=== PATIENT | female | born 1945 | race Caucasian/White ===

== ENCOUNTER 2016-09-16 14:10 | Inpatient (IN) | payer OTHER ==
[2016-09-16] VITALS (8 sets, daily range): BP systolic 104–142; BP diastolic 65–78
[~2016-09-16] VITALS: Ht 154.9 cm; Wt 49.0 kg
[~2016-09-16 14:10] MED LIST: ADVAIR HFA120 INHAL1; ADVAIR HFA120 INHAL1 IH; ALBUTEROL0.63 MG/3 IH; ALBUTEROL17 GM IH; ALBUTEROL2.5 MG/3 M IH; AMLODIPINE BESY10 MG PO; AMLODIPINE BESYL5 MG PO; ASPIR-LOW81 MG PO; AZITHROMYCIN250 MG1 PO; BENZONATATE100 MG PO; CADUET 10/201 TABLET PO; CARISOPRODOL350 MG PO; CEFDINIR300 MG PO; CEFTIN500 MG PO; CEPHALEXIN500 MG PO; CHERATUSSIN AC473 ML PO; COLACE100 MG PO; COMBIVENT RESPIM4 GM IH; COMBIVENT200 INHALA IH; CREON DR 36,001 EACH PO; CYCLOBENZAPRINE5 MG PO; DILAUDID2 MG PO; DOXYCYCLINE HY100 M3 PO; DUONEB 2.5-0.5 M3 ML IH; FLEXERIL5 MG PO; FLONASE16 G1 BOTH NARES; FLORA-Q CAPSUL1 EACH PO; FLUTICASONE PRO16 GM BOTH NARES; GLUCOPHAGE500 MG PO; GUAIFENESI100 MG/5 M PO; HYDROCODON-ACE1 EAC7 PO; LEVAQUIN500 MG PO; LEVAQUIN750 MG PO; LEVEMIR FL100 UNIT/1 SC; LEVEMIR100 UNIT/2 SC; LEVOFLOXACIN750 MG PO; LIDODERM 5% P1 PATCH TD; LO-DOSE ASPIRIN81 M1 PO; LYRICA50 MG PO; LYRICA75 MG PO; METFORMIN HCL500 MG PO; MONTELUKAST SOD10 MG PO; MORPHINE SULFAT15 M1 PO; MS CONTIN,ORAMO15 M1 PO; MUCINEX600 MG PO; MYCOSTATIN 100,60 ML PO; NORVASC5 MG PO; OXYCODONE HCL10 MG PO; OXYCODONE-APAP1 EAC6 PO; OXYCODONE15 MG PO; PERCOCET 10/1 TABLET PO; PERCOCET 7.51 TABLET PO; PRAVACHOL20 MG PO; PRAVASTATIN SOD20 MG PO; PREDNISONE10 M1 PO; PREDNISONE10 MG PO; PREDNISONE20 MG PO; PREDNISONE5 MG PO; PREDNISONE50 MG PO; PROBIOTIC1 EAC1 PO; PROMETHAZINE HC25 M1 PO; PROVENTIL,2.5 MG/3 M IH; SINGULAIR10 MG PO; SPIRIVA1 INHALATI IH; THEO-24300 MG PO; THEO-DUR,THEOC200 MG PO; THEO-DUR,THEOC300 MG PO; THEOPHYLLINE400 MG PO; TIZANIDINE HCL2 MG PO; WELLBUTRIN SR150 MG PO
[2016-09-16 15:00] LABS: HEMATOCRIT 37.9 % (36.0-46.0); MCH 30.5 PG (29.0-34.0); MCHC 33.8 G/DL (30.0-36.0); MCV 90.2 FL (83-99); MEAN PLAT.VOLUME 12.1 uM^3 (9.5-12.4); PLATELET COUNT 133 K/uL (156-360); RBC DIS.WIDTH-CV 13.1 % (11.8-14.6); RBC DIS.WIDTH-SD 42.4 % (39-53); WHITE BLOOD COUNT 7.6 K/uL (4.1-10.2)
[2016-09-16 15:03] LABS: CARBON DIOXIDE (BICARBONATE) 36.3 MEQ/L (20-31)
[2016-09-16 15:09] LABS: CHLORIDE 102 mEq/L (99-109); SODIUM 143 mEq/L (136-147)
[2016-09-16 15:11] LABS: GLUCOSE 137 mg/dL (70-99)
[2016-09-16 15:13] LABS: ANION GAP 9 MEQ/L (2-14)
[2016-09-16 15:15] LABS: GFR ESTIMATE (CALCULATED) > 59 mL/min/
[2016-09-16 15:16] LABS: UREA NITROGEN (BUN) 9 mg/dL (9-23)
[2016-09-16 15:21] LABS: TROP-I INTERPRETATION NEGATIVE; TROPONIN-I 0.01 ng/mL (0.0-0.30)
[2016-09-16] MEDS ORDERED: XYZAL5 MG PO (17:26)
[2016-09-16] MEDS ORDERED: ZANAFLEX4 M1 PO (17:26)
[2016-09-16 22:02] LABS: POINT-OF-CARE METER ID UU13113831
[2016-09-17 00:09] VITALS: BP 112/59
[2016-09-17 04:43] VITALS: BP 149/71
[2016-09-17 09:26] LABS: ANION GAP 6 MEQ/L (2-14); CHLORIDE 100 MEQ/L (99-109); GFR ESTIMATE (CALCULATED) > 59 mL/min/; SAMPLE HEMOLYSIS CHECK 0; SAMPLE ICTERIC CHECK 0; SAMPLE LIPEMIA CHECK 0; SODIUM 139 MEQ/L (136-147); UREA NITROGEN (BUN) 17 mg/dL (9-23)
[2016-09-17 09:32] LABS: GLUCOSE 272 mg/dL (70-99); POTASSIUM 5.2 MEQ/L (3.7-5.4)
[2016-09-17 09:33] LABS: HEMATOCRIT 32.4 % (36.0-46.0); MCH 30.4 PG (29.0-34.0); MCHC 33.6 G/DL (30.0-36.0); MCV 90.5 FL (83-99); MEAN PLAT.VOLUME 12.4 uM^3 (9.5-12.4); PLATELET COUNT 123 K/uL (156-360); RBC DIS.WIDTH-CV 13.4 % (11.8-14.6); RBC DIS.WIDTH-SD 44.3 % (39-53); RED BLOOD COUNT 3.58 M/uL (3.80-5.20)
[2016-09-17 09:56] LABS: WHITE BLOOD COUNT 3.6 K/uL (4.1-10.2)
[2016-09-17 11:17] VITALS: BP 124/57
[2016-09-17 12:51] LABS: POINT-OF-CARE METER ID UU14162513
[2016-09-17 16:35] VITALS: BP 116/58
[2016-09-17 19:42] VITALS: BP 142/69
[2016-09-17 21:39] LABS: POINT-OF-CARE METER ID UU13113700
[2016-09-17 23:30] VITALS: BP 132/62
[2016-09-18] VITALS (7 sets, daily range): BP systolic 116–149; BP diastolic 56–89
[2016-09-18 12:11] LABS: POINT-OF-CARE METER ID UU13113831
[2016-09-18 15:41] LABS: INFLUENZA A VIRAL ANTIGEN NEGATIVE; INFLUENZA B VIRAL ANTIGEN NEGATIVE
[2016-09-19 03:03] VITALS: BP 145/66
[2016-09-19 06:54] VITALS: BP 164/85
[2016-09-19 07:44] LABS: INTERNAL CONTROL VALID? YES
[2016-09-19 08:41] LABS: ANION GAP 8 MEQ/L (2-14); CHLORIDE 99 MEQ/L (99-109); GFR ESTIMATE (CALCULATED) > 59 mL/min/; GLUCOSE 156 mg/dL (70-99); SAMPLE HEMOLYSIS CHECK 0; SAMPLE ICTERIC CHECK 0; SAMPLE LIPEMIA CHECK 0; SODIUM 142 MEQ/L (136-147); UREA NITROGEN (BUN) 19 mg/dL (9-23)
[2016-09-19 08:42] LABS: POTASSIUM 4.1 MEQ/L (3.7-5.4)
[2016-09-19 08:50] LABS: HEMATOCRIT 35.8 % (36.0-46.0); MCHC 32.7 G/DL (30.0-36.0); MCV 91.8 FL (83-99); MEAN PLAT.VOLUME 12.9 uM^3 (9.5-12.4); PLATELET COUNT 132 K/uL (156-360); RBC DIS.WIDTH-CV 13.4 % (11.8-14.6); RBC DIS.WIDTH-SD 43.6 % (39-53)
[2016-09-19 08:52] LABS: WHITE BLOOD COUNT 13.5 K/uL (4.1-10.2)
[2016-09-19 11:05] VITALS: BP 115/56
[2016-09-19 11:26] LABS: METH RESISTANT S AUREUS PCR NEGATIVE (NEGATIVE)
[2016-09-19 11:27] LABS: PROBE CHECK PASS; SPECIMEN PROCESSING CONTROL PASS
[2016-09-19 16:25] VITALS: BP 140/66
[2016-09-19 21:31] LABS: POINT-OF-CARE METER ID UU14162508
[2016-09-19 23:05] VITALS: BP 96/59
[2016-09-20 07:33] LABS: ANION GAP 4 MEQ/L (2-14); CHLORIDE 98 MEQ/L (99-109); GFR ESTIMATE (CALCULATED) > 59 mL/min/; GLUCOSE 172 mg/dL (70-99); MAGNESIUM 1.9 mg/dl (1.3-2.7); POTASSIUM 4.5 MEQ/L (3.7-5.4); SAMPLE HEMOLYSIS CHECK 0; SAMPLE ICTERIC CHECK 0; SAMPLE LIPEMIA CHECK 0; SODIUM 141 MEQ/L (136-147); UREA NITROGEN (BUN) 22 mg/dL (9-23)
[2016-09-20 07:36] LABS: EOSINOPHIL (%) 0 % (0-5); HEMATOCRIT 34.2 % (36.0-46.0); IMMATURE GRANULOCYTE (%) 0.3 % (0.0-0.7); LYMPHOCYTE COUNT 1.9 K/uL (1.0-2.8); MCH 28.7 PG (29.0-34.0); MCHC 31.6 G/DL (30.0-36.0); MEAN PLAT.VOLUME 12.8 uM^3 (9.5-12.4); MONOCYTE COUNT 0.2 K/uL (0-0.8); NEUTROPHIL (%) 73.2 % (45-76); NEUTROPHIL COUNT 5.8 K/uL (1.8-6.4); PLATELET COUNT 132 K/uL (156-360); RBC DIS.WIDTH-CV 13.4 % (11.8-14.6); RBC DIS.WIDTH-SD 44.3 % (39-53); RED BLOOD COUNT 3.76 M/uL (3.80-5.20)
[2016-09-20 08:06] VITALS: BP 138/76
[2016-09-20 12:03] LABS: POINT-OF-CARE METER ID UU14162508
[2016-09-20 16:48] LABS: POINT-OF-CARE METER ID UU14162508
[2016-09-20 21:57] LABS: POINT-OF-CARE METER ID UU14162508
[2016-09-20 23:33] VITALS: BP 112/67
[2016-09-21 06:28] LABS: POINT-OF-CARE METER ID UU14162508
[2016-09-21 07:44] VITALS: BP 151/94
[2016-09-21] MEDS ORDERED: PREDNISONE10 MG PO (08:50)
[2016-09-21] MEDS ORDERED: AUGMENTIN500 MG PO (08:50)
== END 2016-09-21 10:40 | disposition home or self-care (01) | DRG 190 ==
LOC: EME 14:10 → EDOF 18:40 → 5WEST 18:40 → EDOF 18:40 → 5WEST 20:11 → 2EAST 09-17 10:26 → 5WEST 09-17 10:26 → 2EAST 09-18 18:34
PROVIDERS: Emergency Medicine; Hospitalist; Internal Medicine; Nurse Practitioner Adult Health; Physician Assistant
DX: J44.1 Chronic obstructive pulmonary disease with (acute) exacerbation (principal); J44.0 Chronic obstructive pulmonary disease with (acute) lower respiratory infection; J20.9 Acute bronchitis, unspecified; J96.21 Acute and chronic respiratory failure with hypoxia; I10 Essential (primary) hypertension; E11.9 Type 2 diabetes mellitus without complications; D69.6 Thrombocytopenia, unspecified; G89.29 Other chronic pain; M54.9 Dorsalgia, unspecified; K59.00 Constipation, unspecified; F41.9 Anxiety disorder, unspecified; E78.5 Hyperlipidemia, unspecified; K21.9 Gastro-esophageal reflux disease without esophagitis; Z99.81 Dependence on supplemental oxygen; Z87.891 Personal history of nicotine dependence; Z79.82 Long term (current) use of aspirin
CPT/HCPCS: 71010; 71020; 80048; 80198; 82803; 82948; 83605; 83735; 83880; 84484; 85025; 85027; 87040; 87070; 87205; 87449; 87502; 87641; 93005; 94010; 94640; 94640 76; 94760; 94799; 99202; 99281; 99285; G0378; J0692; J0696; J1100; J1644; J1815; J1956; J2920; J2930; J7050; J7512; J7644

== ENCOUNTER 2016-12-27 11:37 | Inpatient (IN) | payer OTHER ==
[~2016-12-27] VITALS: Ht 154.9 cm; Wt 42.3 kg
[~2016-12-27 11:37] MED LIST changes: +AUGMENTIN500 MG PO; +XYZAL5 MG PO; +ZANAFLEX4 M1 PO
[2016-12-27 13:12] LABS: HEMATOCRIT 35.6 % (36.0-46.0); MCH 29.1 PG (29.0-34.0); MCHC 32.3 G/DL (30.0-36.0); MCV 90.1 FL (83-99); MEAN PLAT.VOLUME 12.6 uM^3 (9.5-12.4); PLATELET COUNT 135 K/uL (156-360); RBC DIS.WIDTH-CV 13.4 % (11.8-14.6); RBC DIS.WIDTH-SD 44.2 % (39-53); RED BLOOD COUNT 3.95 M/uL (3.80-5.20); WHITE BLOOD COUNT 17.4 K/uL (4.1-10.2)
[2016-12-27 13:23] LABS: CHLORIDE 101 mEq/L (99-109); POTASSIUM 3.6 mEq/L (3.7-5.4); SODIUM 143 mEq/L (136-147)
[2016-12-27 13:24] LABS: GLUCOSE 250 mg/dL (70-99)
[2016-12-27 13:26] LABS: ANION GAP 11 MEQ/L (2-14)
[2016-12-27 13:28] LABS: GFR ESTIMATE (CALCULATED) > 59 mL/min/
[2016-12-27 13:29] LABS: UREA NITROGEN (BUN) 20 mg/dL (9-23)
[2016-12-27] MEDS ORDERED: SPIRIVA RESPIMAT4 G1 IH (13:46)
[2016-12-27] MEDS ORDERED: DESYREL100 MG PO (13:47)
[2016-12-27] MEDS ORDERED: MECLIZINE HCL25 MG PO (13:47)
[2016-12-27 16:48] LABS: TROP-I INTERPRETATION NEGATIVE; TROPONIN-I < 0.01 ng/mL (0.0-0.30)
[2016-12-27 21:26] VITALS: BP 142/70
[2016-12-27 22:55] LABS: TROP-I INTERPRETATION NEGATIVE; TROPONIN-I < 0.01 ng/mL (0.0-0.30)
[2016-12-28] VITALS (7 sets, daily range): BP systolic 129–179; BP diastolic 60–79
[2016-12-28 06:41] LABS: POINT-OF-CARE METER ID UU14162508
[2016-12-28 07:42] LABS: TROP-I INTERPRETATION NEGATIVE; TROPONIN-I < 0.01 ng/mL (0.0-0.30)
[2016-12-28 12:15] LABS: POINT-OF-CARE USER ID STWLMB34
[2016-12-28 17:01] LABS: POINT-OF-CARE METER ID UU14162508
[2016-12-28 22:27] LABS: POINT-OF-CARE METER ID UU14162508
[2016-12-29 03:05] VITALS: BP 159/68
[2016-12-29 06:26] LABS: POINT-OF-CARE METER ID UU14162508
[2016-12-29 07:00] VITALS: BP 184/85
[2016-12-29 11:15] LABS: POINT-OF-CARE METER ID UU14162508
[2016-12-29 11:21] VITALS: BP 136/68
[2016-12-29 15:58] LABS: POINT-OF-CARE METER ID UU14162508
[2016-12-29 16:11] VITALS: BP 134/72
[2016-12-29 19:16] VITALS: BP 113/57
[2016-12-29 21:44] LABS: POINT-OF-CARE METER ID UU14162508
[2016-12-29 23:21] VITALS: BP 177/87
[2016-12-30 00:06] VITALS: BP 142/75
[2016-12-30 03:16] VITALS: BP 143/72
[2016-12-30 06:27] LABS: POINT-OF-CARE METER ID UU14162508
[2016-12-30 06:55] LABS: HEMATOCRIT 34.4 % (36.0-46.0); MCH 28.7 PG (29.0-34.0); MCHC 31.7 G/DL (30.0-36.0); MCV 90.5 FL (83-99); MEAN PLAT.VOLUME 11.6 uM^3 (9.5-12.4); RBC DIS.WIDTH-CV 13.4 % (11.8-14.6); RBC DIS.WIDTH-SD 44.7 % (39-53)
[2016-12-30 06:58] LABS: PLATELET COUNT 179 K/uL (156-360); WHITE BLOOD COUNT 10.5 K/uL (4.1-10.2)
[2016-12-30 07:13] LABS: ANION GAP 8 MEQ/L (2-14); CHLORIDE 95 MEQ/L (99-109); GFR ESTIMATE (CALCULATED) > 59 mL/min/; GLUCOSE 313 mg/dL (70-99); POTASSIUM 4.1 MEQ/L (3.7-5.4); SAMPLE HEMOLYSIS CHECK 0; SAMPLE ICTERIC CHECK 0; SAMPLE LIPEMIA CHECK 0; SODIUM 141 MEQ/L (136-147); UREA NITROGEN (BUN) 15 mg/dL (9-23)
[2016-12-30 07:23] VITALS: BP 161/74
[2016-12-30] MEDS ORDERED: METFORMIN HCL500 MG PO (08:54)
[2016-12-30] MEDS ORDERED: PREDNISONE10 MG PO (11:38)
[2016-12-30 11:47] LABS: POINT-OF-CARE METER ID UU14162508
[2017-01-01 11:09] LABS: POINT-OF-CARE METER ID UU13113702
== END 2016-12-30 15:47 | disposition home health service (06) | DRG 190 ==
LOC: EME 11:37 → EDOF 13:45 → 2EAST 15:16 → EDOF 15:17 → 2EAST 21:23
PROVIDERS: Emergency Medicine; Internal Medicine; Nurse Practitioner Adult Health
DX: J44.1 Chronic obstructive pulmonary disease with (acute) exacerbation (principal); J96.21 Acute and chronic respiratory failure with hypoxia; F17.210 Nicotine dependence, cigarettes, uncomplicated; D69.6 Thrombocytopenia, unspecified; D64.9 Anemia, unspecified; E11.9 Type 2 diabetes mellitus without complications; I10 Essential (primary) hypertension; K86.9 Disease of pancreas, unspecified; E78.00 Pure hypercholesterolemia, unspecified; G89.4 Chronic pain syndrome; F41.9 Anxiety disorder, unspecified; Z99.81 Dependence on supplemental oxygen; Z79.84 Long term (current) use of oral hypoglycemic drugs
CPT/HCPCS: 71020; 71250; 80048; 82948; 83605; 84484; 85027; 87070; 87205; 93005; 94640; 94640 76; 94760; 94799; 99202; 99281; 99284; J0696; J1100; J1650; J1815; J2920; J2930; J7030; J7050; J7512; J7644

== ENCOUNTER 2017-01-13 14:05 | Emergency (ER) | payer OTHER ==
[~2017-01-13] VITALS: Ht 152.4 cm; Wt 39.6 kg
[~2017-01-13 14:05] MED LIST changes: +DESYREL100 MG PO; +MECLIZINE HCL25 MG PO; +SPIRIVA RESPIMAT4 G1 IH
[2017-01-13 16:18] LABS: HEMATOCRIT 38.5 % (36.0-46.0); MCH 28.6 PG (29.0-34.0); MCHC 31.7 G/DL (30.0-36.0); MCV 90.2 FL (83-99); MEAN PLAT.VOLUME 11.4 uM^3 (9.5-12.4); PLATELET COUNT 186 K/uL (156-360); RBC DIS.WIDTH-CV 14.6 % (11.8-14.6); RBC DIS.WIDTH-SD 47.5 % (39-53); RED BLOOD COUNT 4.27 M/uL (3.80-5.20); WHITE BLOOD COUNT 11.1 K/uL (4.1-10.2)
[2017-01-13 16:28] LABS: CHLORIDE 97 mEq/L (99-109); POTASSIUM 4.3 mEq/L (3.7-5.4); SODIUM 137 mEq/L (136-147)
[2017-01-13 16:30] LABS: GLUCOSE 265 mg/dL (70-99)
[2017-01-13 16:31] LABS: ANION GAP 11 MEQ/L (2-14)
[2017-01-13 16:33] LABS: GFR ESTIMATE (CALCULATED) > 59 mL/min/
[2017-01-13 16:34] LABS: UREA NITROGEN (BUN) 14 mg/dL (9-23)
[2017-01-13 16:40] LABS: TROP-I INTERPRETATION NEGATIVE; TROPONIN-I < 0.01 ng/mL (0.0-0.30)
[2017-01-13 18:47] VITALS: BP 125/67
== END 2017-01-13 19:14 | disposition home or self-care (01) ==
LOC: EME 14:05
PROVIDERS: Emergency Medicine
DX: R42 Dizziness and giddiness (principal); R06.02 Shortness of breath; R07.89 Other chest pain; E11.9 Type 2 diabetes mellitus without complications; E78.5 Hyperlipidemia, unspecified; I10 Essential (primary) hypertension; K21.9 Gastro-esophageal reflux disease without esophagitis; Z87.891 Personal history of nicotine dependence; Z79.82 Long term (current) use of aspirin
CPT/HCPCS: 71275; 80048; 84484; 85027; 93005; 94640; 99281; 99285

== ENCOUNTER 2017-04-22 21:16 | Inpatient (IN) | payer OTHER ==
[~2017-04-22] VITALS: Ht 154.9 cm; Wt 41.7 kg
[2017-04-22 22:07] LABS: EOSINOPHIL (%) 2.7 % (0-5); EOSINOPHIL COUNT 0.4 K/uL (0-0.3); HEMATOCRIT 36.6 % (36.0-46.0); IMMATURE GRANULOCYTE (%) 0.4 % (0.0-0.7); IMMATURE GRANULOCYTE COUNT 0.1 K/uL; INSTRUMENT ABS NEUTROPHIL CT 9.9 K/uL; LYMPHOCYTE COUNT 2.2 K/uL (1.0-2.8); MCH 29.4 PG (29.0-34.0); MCHC 32.5 G/DL (30.0-36.0); MCV 90.4 FL (83-99); MEAN PLAT.VOLUME 12.5 uM^3 (9.5-12.4); MONOCYTE (%) 5.4 % (3-12); MONOCYTE COUNT 0.7 K/uL (0-0.8); NEUTROPHIL (%) 74.6 % (45-76); NEUTROPHIL COUNT 9.9 K/uL (1.8-6.4); PLATELET COUNT 121 K/uL (156-360); RBC DIS.WIDTH-CV 13.4 % (11.8-14.6); RBC DIS.WIDTH-SD 44.1 % (39-53); RED BLOOD COUNT 4.05 M/uL (3.80-5.20); WHITE BLOOD COUNT 13.3 K/uL (4.1-10.2)
[2017-04-22 22:17] LABS: CHLORIDE 101 mEq/L (99-109); POTASSIUM 3.3 mEq/L (3.7-5.4); SODIUM 143 mEq/L (136-147)
[2017-04-22 22:19] LABS: GLUCOSE 185 mg/dL (70-99)
[2017-04-22 22:20] LABS: ANION GAP 12 MEQ/L (2-14)
[2017-04-22 22:21] LABS: TOTAL BILIRUBIN 0.2 mg/dL (0.0-1.0)
[2017-04-22 22:22] LABS: ALKALINE PHOSPHATASE 72 IU/L (3-129)
[2017-04-22 22:23] LABS: GFR ESTIMATE (CALCULATED) > 59 mL/min/
[2017-04-22 22:24] LABS: UREA NITROGEN (BUN) 9 mg/dL (9-23)
[2017-04-22 22:28] LABS: TROP-I INTERPRETATION NEGATIVE; TROPONIN-I < 0.01 ng/mL (0.0-0.30)
[2017-04-23 03:16] VITALS: BP 134/66
[2017-04-23 05:28] LABS: BASE EXCESS 6.6 mEq/L (-3 to +3); BICARBONATE 34.3 mEq/L (22-26); CARBOXY HGB 2.4 % (0-5); COMMENTS - BLOOD GASES C+; DEVICE NC; O2 FLOW 4 L/MIN; PCO2 65 mm Hg (35-45); PO2 70 mm Hg (80-100); SITE LR; pH 7.33 (7.35-7.45)
[2017-04-23 06:25] LABS: POINT-OF-CARE METER ID UU14162508
[2017-04-23 07:25] VITALS: BP 134/72
[2017-04-23] MEDS ORDERED: ZANAFLEX4 M1 PO (09:10)
[2017-04-23] MEDS ORDERED: XYZAL5 MG PO (09:11)
[2017-04-23] MEDS ORDERED: JANUMET 50/11 TABLET PO (09:11)
[2017-04-23] MEDS ORDERED: LASIX20 MG PO (09:12)
[2017-04-23] MEDS ORDERED: KLOR-CON 1010 ME1 PO (09:12)
[2017-04-23 10:05] LABS: ANION GAP 8 MEQ/L (2-14); CHLORIDE 99 MEQ/L (99-109); GFR ESTIMATE (CALCULATED) > 59 mL/min/; SAMPLE HEMOLYSIS CHECK 0; SAMPLE ICTERIC CHECK 0; SAMPLE LIPEMIA CHECK 0; SODIUM 141 MEQ/L (136-147); UREA NITROGEN (BUN) 12 mg/dL (9-23)
[2017-04-23 10:06] LABS: GLUCOSE 295 mg/dL (70-99); POTASSIUM 4.5 MEQ/L (3.7-5.4)
[2017-04-23 11:30] VITALS: BP 124/61
[2017-04-23 12:08] LABS: POINT-OF-CARE METER ID UU14208750; POINT-OF-CARE USER ID PUTDRM
[2017-04-23 15:20] VITALS: BP 137/63
[2017-04-23 16:52] LABS: POINT-OF-CARE METER ID UU14208750; POINT-OF-CARE USER ID PUTDRM
[2017-04-23 19:23] VITALS: BP 113/61
[2017-04-23 21:58] LABS: POINT-OF-CARE METER ID UU14162508
[2017-04-23 23:57] VITALS: BP 120/64
[2017-04-24 03:48] VITALS: BP 129/62
[2017-04-24 06:50] VITALS: BP 139/77
[2017-04-24 07:06] LABS: POINT-OF-CARE METER ID UU14162508
[2017-04-24 07:39] LABS: HEMATOCRIT 35.5 % (36.0-46.0); MCH 28.8 PG (29.0-34.0); MCHC 31.3 G/DL (30.0-36.0); RBC DIS.WIDTH-CV 13.8 % (11.8-14.6); RBC DIS.WIDTH-SD 46.4 % (39-53); RED BLOOD COUNT 3.86 M/uL (3.80-5.20)
[2017-04-24 08:05] LABS: MEAN PLAT.VOLUME 12.7 uM^3 (9.5-12.4); PLAT.SUFFICIENCY DECREASED; PLATELET COUNT 120 K/uL (156-360)
[2017-04-24 08:06] LABS: ALKALINE PHOSPHATASE 59 IU/L (3-129); ANION GAP 9 MEQ/L (2-14); CHLORIDE 101 MEQ/L (99-109); GFR ESTIMATE (CALCULATED) > 59 mL/min/; GLUCOSE 202 mg/dL (70-99); POTASSIUM 4.7 MEQ/L (3.7-5.4); SAMPLE HEMOLYSIS CHECK 0; SAMPLE ICTERIC CHECK 0; SAMPLE LIPEMIA CHECK 0; SODIUM 144 MEQ/L (136-147); TOTAL BILIRUBIN 0.2 MG/DL (0.0-1.0); UREA NITROGEN (BUN) 19 mg/dL (9-23)
[2017-04-24 11:10] VITALS: BP 124/59
[2017-04-24 12:11] LABS: POINT-OF-CARE METER ID UU14162508
[2017-04-24 15:10] VITALS: BP 135/62
[2017-04-24 15:54] LABS: POINT-OF-CARE METER ID UU14162508
[2017-04-24 19:20] VITALS: BP 133/65
[2017-04-24 21:44] LABS: POINT-OF-CARE METER ID UU14162508
[2017-04-24 23:31] VITALS: BP 127/60
[2017-04-25 00:07] VITALS: BP 141/76
[2017-04-25 03:38] VITALS: BP 130/70
[2017-04-25 06:38] LABS: POINT-OF-CARE METER ID UU14162508
[2017-04-25 06:56] LABS: HEMATOCRIT 34.6 % (36.0-46.0); MCH 28.6 PG (29.0-34.0); MCHC 31.2 G/DL (30.0-36.0); MCV 91.8 FL (83-99); RBC DIS.WIDTH-CV 13.7 % (11.8-14.6); RBC DIS.WIDTH-SD 46.3 % (39-53); RED BLOOD COUNT 3.77 M/uL (3.80-5.20); WHITE BLOOD COUNT 12.3 K/uL (4.1-10.2)
[2017-04-25 07:32] LABS: PLAT.SUFFICIENCY DECREASED; PLATELET COUNT 123 K/uL (156-360)
[2017-04-25 07:50] VITALS: BP 143/67
[2017-04-25 12:12] LABS: POINT-OF-CARE METER ID UU14162508
[2017-04-25 15:58] VITALS: BP 116/69
[2017-04-25 16:06] LABS: POINT-OF-CARE METER ID UU14162508
[2017-04-25 22:01] LABS: POINT-OF-CARE METER ID UU14208750
[2017-04-26 06:58] LABS: POINT-OF-CARE METER ID UU14162508
[2017-04-26 07:20] VITALS: BP 165/77
[2017-04-26 07:36] LABS: MCH 28.4 PG (29.0-34.0); MCHC 30.8 G/DL (30.0-36.0); MEAN PLAT.VOLUME 12.3 uM^3 (9.5-12.4); PLATELET COUNT 144 K/uL (156-360); RBC DIS.WIDTH-CV 13.5 % (11.8-14.6); RBC DIS.WIDTH-SD 46.2 % (39-53); RED BLOOD COUNT 4.02 M/uL (3.80-5.20); WHITE BLOOD COUNT 13.3 K/uL (4.1-10.2)
[2017-04-26 08:04] LABS: ANION GAP ND MEQ/L (2-14); CHLORIDE 96 MEQ/L (99-109); GFR ESTIMATE (CALCULATED) > 59 mL/min/; GLUCOSE 255 mg/dL (70-99); POTASSIUM 3.9 MEQ/L (3.7-5.4); SAMPLE HEMOLYSIS CHECK 0; SAMPLE ICTERIC CHECK 0; SAMPLE LIPEMIA CHECK 0; SODIUM 144 MEQ/L (136-147); UREA NITROGEN (BUN) 25 mg/dL (9-23)
[2017-04-26 08:06] LABS: CARBON DIOXIDE (BICARBONATE) > 40.0 MEQ/L (20-31)
[2017-04-26 09:35] LABS: BASE EXCESS 16.7 mEq/L (-3 to +3); BICARBONATE 44.8 mEq/L (22-26); METHEMOGLOBIN 1.1 % (0-1.5); PCO2 74 mm Hg (35-45); PO2 92 mm Hg (80-100); SITE RR; pH 7.39 (7.35-7.45)
[2017-04-26 09:36] LABS: COMMENTS - BLOOD GASES A+C+; DEVICE NC; O2 FLOW 3 L/MIN; TOTAL RESP RATE 20 resp/min
[2017-04-26 11:47] LABS: POINT-OF-CARE METER ID UU14162508
[2017-04-26 15:15] VITALS: BP 109/58
[2017-04-26 16:35] LABS: POINT-OF-CARE METER ID UU14208750; POINT-OF-CARE USER ID PUTDRM
[2017-04-26 21:58] LABS: POINT-OF-CARE METER ID UU14162508
[2017-04-26 23:51] VITALS: BP 115/62
[2017-04-27 06:29] LABS: HEMATOCRIT 39.4 % (36.0-46.0); MCH 28.5 PG (29.0-34.0); MCHC 30.7 G/DL (30.0-36.0); MCV 92.7 FL (83-99); RBC DIS.WIDTH-CV 13.2 % (11.8-14.6); RED BLOOD COUNT 4.25 M/uL (3.80-5.20); WHITE BLOOD COUNT 11.2 K/uL (4.1-10.2)
[2017-04-27 06:39] LABS: POINT-OF-CARE METER ID UU14208750
[2017-04-27 06:54] LABS: ANION GAP 8 MEQ/L (2-14); CHLORIDE 98 MEQ/L (99-109); GFR ESTIMATE (CALCULATED) > 59 mL/min/; GLUCOSE 349 mg/dL (70-99); POTASSIUM 3.7 MEQ/L (3.7-5.4); SAMPLE HEMOLYSIS CHECK 0; SAMPLE ICTERIC CHECK 0; SAMPLE LIPEMIA CHECK 0; SODIUM 140 MEQ/L (136-147); UREA NITROGEN (BUN) 22 mg/dL (9-23)
[2017-04-27 07:07] LABS: MEAN PLAT.VOLUME 13.2 uM^3 (9.5-12.4); PLAT.SUFFICIENCY DECREASED; PLATELET COUNT 149 K/uL (156-360)
[2017-04-27 07:48] VITALS: BP 155/98
[2017-04-27 11:45] LABS: Estimated Average Glucose 183 mg/dL (70-123)
[2017-04-27 11:45] LABS: POINT-OF-CARE METER ID UU14162508
[2017-04-27 16:00] VITALS: BP 126/78
[2017-04-28 00:22] VITALS: BP 146/68
[2017-04-28 06:23] LABS: POINT-OF-CARE METER ID UU14208750
[2017-04-28 07:25] VITALS: BP 168/87
[2017-04-28 11:44] LABS: POINT-OF-CARE METER ID UU14162508
[2017-04-28 12:10] VITALS: BP 138/62
[2017-04-28 13:42] LABS: BASE EXCESS 2.8 mEq/L (-3 to +3); CARBOXY HGB 1.3 % (0-5); METHEMOGLOBIN 1.1 % (0-1.5); pH 7.34 (7.35-7.45)
[2017-04-28 13:43] LABS: BICARBONATE 29.7 mEq/L (22-26); COMMENTS - BLOOD GASES NAC+; PCO2 55 mm Hg (35-45); PO2 64 mm Hg (80-100); SITE RR
[2017-04-28 13:44] LABS: DEVICE NC; O2 FLOW 2 L/MIN; TOTAL RESP RATE 22 resp/min
[2017-04-28 16:29] LABS: POINT-OF-CARE METER ID UU14162508
[2017-04-28 17:33] VITALS: BP 138/69
[2017-04-28 17:47] LABS: POINT-OF-CARE METER ID UU14208750
[2017-04-28 17:50] LABS: POINT-OF-CARE METER ID UU14162508
[2017-04-28 21:40] LABS: POINT-OF-CARE METER ID UU14162508
[2017-04-29 00:09] VITALS: BP 132/66
[2017-04-29 06:30] LABS: POINT-OF-CARE METER ID UU14162508
[2017-04-29 07:02] VITALS: BP 142/69
[2017-04-29 07:12] LABS: HEMATOCRIT 34.7 % (36.0-46.0); MCHC 33.7 G/DL (30.0-36.0); RBC DIS.WIDTH-CV 13.2 % (11.8-14.6); RBC DIS.WIDTH-SD 43.6 % (39-53); WHITE BLOOD COUNT 9.9 K/uL (4.1-10.2)
[2017-04-29 07:39] LABS: ANION GAP 9 MEQ/L (2-14); CHLORIDE 103 MEQ/L (99-109); GFR ESTIMATE (CALCULATED) > 59 mL/min/; GLUCOSE 215 mg/dL (70-99); POTASSIUM 3.4 MEQ/L (3.7-5.4); SAMPLE HEMOLYSIS CHECK 0; SAMPLE ICTERIC CHECK 0; SAMPLE LIPEMIA CHECK 0; SODIUM 142 MEQ/L (136-147); UREA NITROGEN (BUN) 32 mg/dL (9-23)
[2017-04-29 07:41] LABS: PLAT.SUFFICIENCY ADEQUATE; PLATELET COUNT 155 K/uL (156-360)
[2017-04-29 12:23] LABS: POINT-OF-CARE METER ID UU14162508
[2017-04-29 16:02] VITALS: BP 127/59
[2017-04-29 16:39] LABS: POINT-OF-CARE METER ID UU14208750
[2017-04-29 21:46] LABS: POINT-OF-CARE METER ID UU14208750
[2017-04-29 23:39] VITALS: BP 139/69
[2017-04-30 06:51] LABS: POINT-OF-CARE METER ID UU14162508
[2017-04-30 07:00] VITALS: BP 157/70
[2017-04-30 07:06] LABS: HEMATOCRIT 34.7 % (36.0-46.0); MCH 29.8 PG (29.0-34.0); MCHC 33.4 G/DL (30.0-36.0); MCV 89.2 FL (83-99); RBC DIS.WIDTH-CV 13.3 % (11.8-14.6); RBC DIS.WIDTH-SD 43.7 % (39-53); RED BLOOD COUNT 3.89 M/uL (3.80-5.20); WHITE BLOOD COUNT 14.4 K/uL (4.1-10.2)
[2017-04-30 07:38] LABS: ANION GAP 5 MEQ/L (2-14); CHLORIDE 103 MEQ/L (99-109); GFR ESTIMATE (CALCULATED) > 59 mL/min/; POTASSIUM 3.5 MEQ/L (3.7-5.4); SAMPLE HEMOLYSIS CHECK 0; SAMPLE ICTERIC CHECK 0; SAMPLE LIPEMIA CHECK 0; SODIUM 143 MEQ/L (136-147); UREA NITROGEN (BUN) 30 mg/dL (9-23)
[2017-04-30 07:40] LABS: GLUCOSE 113 mg/dL (70-99)
[2017-04-30 07:52] LABS: MEAN PLAT.VOLUME 12.5 uM^3 (9.5-12.4); PLAT.SUFFICIENCY ADEQUATE; PLATELET COUNT 163 K/uL (156-360)
[2017-04-30 11:40] LABS: POINT-OF-CARE METER ID UU14162508; POINT-OF-CARE USER ID PUTDRM
[2017-04-30 15:15] VITALS: BP 136/58
[2017-04-30 16:26] LABS: POINT-OF-CARE METER ID UU14162508; POINT-OF-CARE USER ID PUTDRM
[2017-04-30 21:34] LABS: POINT-OF-CARE METER ID UU14162508
[2017-04-30 23:29] VITALS: BP 153/73
[2017-05-01 06:45] VITALS: BP 133/71
[2017-05-01 06:48] LABS: POINT-OF-CARE METER ID UU14162508
[2017-05-01 07:31] LABS: EOSINOPHIL (%) 0.7 % (0-5); EOSINOPHIL COUNT 0.1 K/uL (0-0.3); HEMATOCRIT 36.8 % (36.0-46.0); IMMATURE GRANULOCYTE (%) 2.6 % (0.0-0.7); IMMATURE GRANULOCYTE COUNT 0.4 K/uL; INSTRUMENT ABS NEUTROPHIL CT 10.4 K/uL; LYMPHOCYTE COUNT 4.2 K/uL (1.0-2.8); MCH 28.8 PG (29.0-34.0); MCHC 32.1 G/DL (30.0-36.0); MCV 89.8 FL (83-99); MEAN PLAT.VOLUME 12.5 uM^3 (9.5-12.4); MONOCYTE (%) 7.2 % (3-12); MONOCYTE COUNT 1.2 K/uL (0-0.8); NEUTROPHIL (%) 63.6 % (45-76); NEUTROPHIL COUNT 10.4 K/uL (1.8-6.4); PLATELET COUNT 171 K/uL (156-360); RBC DIS.WIDTH-CV 13.5 % (11.8-14.6); RBC DIS.WIDTH-SD 44.3 % (39-53); WHITE BLOOD COUNT 16.3 K/uL (4.1-10.2)
[2017-05-01 07:58] LABS: ANION GAP 7 MEQ/L (2-14); CHLORIDE 100 MEQ/L (99-109); GFR ESTIMATE (CALCULATED) > 59 mL/min/; GLUCOSE 176 mg/dL (70-99); POTASSIUM 3.7 MEQ/L (3.7-5.4); SAMPLE HEMOLYSIS CHECK 0; SAMPLE ICTERIC CHECK 0; SAMPLE LIPEMIA CHECK 0; SODIUM 140 MEQ/L (136-147); UREA NITROGEN (BUN) 20 mg/dL (9-23)
[2017-05-01 12:24] LABS: POINT-OF-CARE METER ID UU14162508
[2017-05-01 16:09] VITALS: BP 125/61
[2017-05-01 16:29] LABS: POINT-OF-CARE METER ID UU14162508
[2017-05-01 21:42] LABS: POINT-OF-CARE METER ID UU14162508
[2017-05-02 00:23] VITALS: BP 120/61
[2017-05-02 06:21] LABS: POINT-OF-CARE METER ID UU14162508
[2017-05-02 07:15] VITALS: BP 124/68
[2017-05-02 07:22] LABS: EOSINOPHIL (%) 1.7 % (0-5); EOSINOPHIL COUNT 0.3 K/uL (0-0.3); HEMATOCRIT 35.7 % (36.0-46.0); IMMATURE GRANULOCYTE (%) 2.8 % (0.0-0.7); IMMATURE GRANULOCYTE COUNT 0.4 K/uL; INSTRUMENT ABS NEUTROPHIL CT 8.5 K/uL; LYMPHOCYTE COUNT 4.3 K/uL (1.0-2.8); MCH 30.2 PG (29.0-34.0); MCHC 33.9 G/DL (30.0-36.0); MONOCYTE (%) 7.6 % (3-12); MONOCYTE COUNT 1.1 K/uL (0-0.8); NEUTROPHIL (%) 58.2 % (45-76); NEUTROPHIL COUNT 8.5 K/uL (1.8-6.4); PLATELET COUNT 189 K/uL (156-360); RBC DIS.WIDTH-CV 13.2 % (11.8-14.6); RBC DIS.WIDTH-SD 42.6 % (39-53); RED BLOOD COUNT 4.01 M/uL (3.80-5.20); WHITE BLOOD COUNT 14.7 K/uL (4.1-10.2)
[2017-05-02 07:46] LABS: ANION GAP 7 MEQ/L (2-14); CHLORIDE 98 MEQ/L (99-109); GFR ESTIMATE (CALCULATED) > 59 mL/min/; GLUCOSE 123 mg/dL (70-99); POTASSIUM 3.3 MEQ/L (3.7-5.4); SAMPLE HEMOLYSIS CHECK 0; SAMPLE ICTERIC CHECK 0; SAMPLE LIPEMIA CHECK 0; SODIUM 142 MEQ/L (136-147); UREA NITROGEN (BUN) 15 mg/dL (9-23)
[2017-05-02] MEDS ORDERED: PREDNISONE20 MG PO (10:53)
[2017-05-02] MEDS ORDERED: DOXYCYCLINE HY100 MG PO (10:59)
[2017-05-02] MEDS ORDERED: CEFTIN500 MG PO (10:59)
== END 2017-05-02 11:54 | disposition home health service (06) | DRG 189 ==
LOC: EME 21:16 → EDOF 04-23 00:38 → 2EASTP 04-23 00:38 → ENRESERV 04-23 00:44 → EDOF 04-23 02:33 → 2EASTP 04-23 02:36
PROVIDERS: Emergency Medicine; Hospitalist; Internal Medicine; Internal Medicine Pulmonary Disease
PROC: 5A09357 Assistance with Respiratory Ventilation, Less than 24 Consecutive Hours, Continuous Positive Airway Pressure (ICD-10-PCS; principal; 2017-05-01)
DX: J96.21 Acute and chronic respiratory failure with hypoxia (principal); J44.1 Chronic obstructive pulmonary disease with (acute) exacerbation; J44.0 Chronic obstructive pulmonary disease with (acute) lower respiratory infection; J20.9 Acute bronchitis, unspecified; Z99.81 Dependence on supplemental oxygen; E11.65 Type 2 diabetes mellitus with hyperglycemia; D69.6 Thrombocytopenia, unspecified; I10 Essential (primary) hypertension; E87.6 Hypokalemia; E78.00 Pure hypercholesterolemia, unspecified; K21.9 Gastro-esophageal reflux disease without esophagitis; F31.9 Bipolar disorder, unspecified; Z87.891 Personal history of nicotine dependence; Z86.73 Personal history of transient ischemic attack (TIA), and cerebral infarction without residual deficits; Z80.3 Family history of malignant neoplasm of breast; Z82.49 Family history of ischemic heart disease and other diseases of the circulatory system; Z82.5 Family history of asthma and other chronic lower respiratory diseases; Z79.82 Long term (current) use of aspirin; Z79.84 Long term (current) use of oral hypoglycemic drugs
CPT/HCPCS: 36600; 71010; 71020; 80048; 80053; 80198; 80299 90; 82803; 82948; 83036; 83605; 83880; 84484; 85025; 85027; 85379; 87040; 87070; 87205; 93005; 93971; 94640; 94640 76; 94660; 94667; 94668; 94760; 94799; 99202; 99281; 99285; G0378; J0696; J1100; J1644; J1815; J1940; J1956; J2930; J7030; J7050; J7512; J7644

== ENCOUNTER 2017-09-05 15:14 | Inpatient (IN) | payer OTHER ==
[~2017-09-05] VITALS: Ht 154.9 cm; Wt 46.0 kg
[~2017-09-05 15:14] MED LIST changes: +DOXYCYCLINE HY100 MG PO; +JANUMET 50/11 TABLET PO; +KLOR-CON 1010 ME1 PO; +LASIX20 MG PO; +THEOPHYLLINE A200 M1 PO; +ZANAFLEX4 MG PO
[2017-09-05 16:50] LABS: BASOPHIL (%) 0.4 % (0-1); BASOPHIL COUNT 0.1 K/uL (0-0.1); EOSINOPHIL (%) 0.9 % (0-5); EOSINOPHIL COUNT 0.1 K/uL (0-0.3); HEMATOCRIT 34.3 % (36.0-46.0); IMMATURE GRANULOCYTE (%) 0.5 % (0.0-0.7); LYMPHOCYTE (%) 14.6 % (15-42); LYMPHOCYTE COUNT 1.7 K/uL (1.0-2.8); MCH 29.6 PG (29.0-34.0); MCHC 32.1 G/DL (30.0-36.0); MCV 92.5 FL (83-99); MONOCYTE (%) 6.8 % (3-12); MONOCYTE COUNT 0.8 K/uL (0-0.8); NEUTROPHIL (%) 76.8 % (45-76); NEUTROPHIL COUNT 9.1 K/uL (1.8-6.4); PLATELET COUNT 97 K/uL (156-360); RBC DIS.WIDTH-CV 13.5 % (11.8-14.6); RBC DIS.WIDTH-SD 46.5 % (39-53); RED BLOOD COUNT 3.71 M/uL (3.80-5.20); WHITE BLOOD COUNT 11.8 K/uL (4.1-10.2)
[2017-09-05 17:01] LABS: BASE EXCESS 18.6 mEq/L (-3 to +3); BICARBONATE 46.1 mEq/L (22-26); CARBOXY HGB 5.4 % (0-5); METHEMOGLOBIN 0.5 % (0-1.5); PO2 63 mm Hg (80-100); pH 7.42 (7.35-7.45)
[2017-09-05 17:02] LABS: COMMENTS - BLOOD GASES A+C+; DEVICE NC; O2 FLOW 3 L/MIN; PCO2 71 mm Hg (35-45); SITE RR
[2017-09-05 17:12] LABS: PTT 31.1 SEC (25-37)
[2017-09-05 17:26] LABS: CHLORIDE 97 mEq/L (99-109); POTASSIUM 3.8 mEq/L (3.7-5.4); SODIUM 143 mEq/L (136-147)
[2017-09-05 17:29] LABS: GLUCOSE 139 mg/dL (70-99); TOTAL PROTEIN 7.2 g/dL (6.4-8.3)
[2017-09-05 17:30] LABS: TOTAL BILIRUBIN 0.3 mg/dL (0.0-1.0)
[2017-09-05 17:32] LABS: ALKALINE PHOSPHATASE 92 IU/L (3-129); CREATININE 0.7 mg/dL (0.6-1.3); GFR ESTIMATE (CALCULATED) > 59 mL/min/
[2017-09-05 17:33] LABS: AST (GOT) 15 IU/L (2-34); DIRECT BILIRUBIN 0.2 mg/dL (0.0-0.3); UREA NITROGEN (BUN) 16 mg/dL (9-23)
[2017-09-05 17:35] LABS: ALT (GPT) 11 IU/L (3-49); LIPASE 19 U/L (1.0-51.0)
[2017-09-05] MEDS ORDERED: EYE DROPS (18:37)
[2017-09-05] MEDS ORDERED: PROAIR HFA8.5 GM IH (18:38)
[2017-09-05 18:51] LABS: APPEARANCE CLEAR ((CLEAR)); BILIRUBIN NEGATIVE; BLOOD NEGATIVE; COLOR YELLOW ((YELLOW)); GLUCOSE (STRIP) NEGATIVE; KETONES NEGATIVE; LEUKOCYTES NEGATIVE; NITRITE NEGATIVE; PROTEIN (STRIP) NEGATIVE; SPECIFIC GRAVITY 1.015 (1.000-1.030); UCUL ADDED? NO; UROBILINOGEN 0.2 MG/DL (0.2-1.0)
[2017-09-05 21:38] VITALS: BP 140/73
[2017-09-05] MEDS ORDERED: OXYCODONE-APAP1 EACH PO (22:24)
[2017-09-05] MEDS ORDERED: LIDODERM 5% P1 PATCH TD (22:25)
[2017-09-06] VITALS (7 sets, daily range): BP systolic 133–173; BP diastolic 63–82
[2017-09-06 06:00] LABS: HEMOGLOBIN 10.8 G/DL (11.9-15.5); MCH 29.3 PG (29.0-34.0); MCHC 31.8 G/DL (30.0-36.0); MCV 92.4 FL (83-99); PLATELET COUNT 101 K/uL (156-360); RBC DIS.WIDTH-CV 13.6 % (11.8-14.6); RBC DIS.WIDTH-SD 46.5 % (39-53); RED BLOOD COUNT 3.68 M/uL (3.80-5.20); WHITE BLOOD COUNT 4.1 K/uL (4.1-10.2)
[2017-09-06 09:58] LABS: CHLORIDE 97 MEQ/L (99-109); CREATININE 0.4 MG/DL (0.6-1.3); GFR ESTIMATE (CALCULATED) > 59 mL/min/; SODIUM 143 MEQ/L (136-147); UREA NITROGEN (BUN) 11 mg/dL (9-23)
[2017-09-06 10:00] LABS: GLUCOSE 276 mg/dL (70-99)
[2017-09-06 11:50] LABS: BASE EXCESS 11.4 mEq/L (-3 to +3); CARBOXY HGB 1.2 % (0-5); METHEMOGLOBIN 1.1 % (0-1.5); PCO2 69 mm Hg (35-45); PO2 93 mm Hg (80-100); pH 7.36 (7.35-7.45)
[2017-09-06 11:51] LABS: COMMENTS - BLOOD GASES A+C+; DEVICE NC; O2 FLOW 5 L/MIN; SITE RR
[2017-09-06] MEDS ORDERED: LUMIGAN 0.50 DROP/22 LEFT EYE (13:02)
[2017-09-07 04:37] VITALS: BP 140/68
[2017-09-07 05:50] LABS: BASOPHIL (%) 0 % (0-1); EOSINOPHIL (%) 0 % (0-5); HEMATOCRIT 33.1 % (36.0-46.0); HEMOGLOBIN 10.4 G/DL (11.9-15.5); IMMATURE GRANULOCYTE (%) 0.2 % (0.0-0.7); LYMPHOCYTE (%) 17.5 % (15-42); LYMPHOCYTE COUNT 1.5 K/uL (1.0-2.8); MCH 29.2 PG (29.0-34.0); MCHC 31.4 G/DL (30.0-36.0); MONOCYTE (%) 6.5 % (3-12); MONOCYTE COUNT 0.6 K/uL (0-0.8); NEUTROPHIL (%) 75.8 % (45-76); NEUTROPHIL COUNT 6.6 K/uL (1.8-6.4); PLATELET COUNT 111 K/uL (156-360); RBC DIS.WIDTH-CV 13.8 % (11.8-14.6); RBC DIS.WIDTH-SD 47.5 % (39-53); RED BLOOD COUNT 3.56 M/uL (3.80-5.20); WHITE BLOOD COUNT 8.7 K/uL (4.1-10.2)
[2017-09-07 06:12] LABS: CHLORIDE 98 MEQ/L (99-109); CREATININE 0.5 MG/DL (0.6-1.3); GFR ESTIMATE (CALCULATED) > 59 mL/min/; GLUCOSE 181 mg/dL (70-99); POTASSIUM 3.7 MEQ/L (3.7-5.4); SODIUM 142 MEQ/L (136-147); UREA NITROGEN (BUN) 16 mg/dL (9-23)
[2017-09-07 08:00] VITALS: BP 132/71
[2017-09-07 12:21] VITALS: BP 146/67
[2017-09-07 16:25] VITALS: BP 145/71
[2017-09-07 19:45] VITALS: BP 152/75
[2017-09-08] VITALS (7 sets, daily range): BP systolic 140–163; BP diastolic 74–83
[2017-09-08 04:53] LABS: BASOPHIL (%) 0 % (0-1); EOSINOPHIL (%) 0 % (0-5); HEMATOCRIT 30.5 % (36.0-46.0); HEMOGLOBIN 9.7 G/DL (11.9-15.5); IMMATURE GRANULOCYTE (%) 0.8 % (0.0-0.7); LYMPHOCYTE (%) 14.5 % (15-42); LYMPHOCYTE COUNT 1.4 K/uL (1.0-2.8); MCH 29.2 PG (29.0-34.0); MCHC 31.8 G/DL (30.0-36.0); MCV 91.9 FL (83-99); MONOCYTE (%) 3.8 % (3-12); MONOCYTE COUNT 0.4 K/uL (0-0.8); NEUTROPHIL (%) 80.9 % (45-76); NEUTROPHIL COUNT 7.6 K/uL (1.8-6.4); RBC DIS.WIDTH-CV 13.7 % (11.8-14.6); RBC DIS.WIDTH-SD 46.3 % (39-53); RED BLOOD COUNT 3.32 M/uL (3.80-5.20); WHITE BLOOD COUNT 9.3 K/uL (4.1-10.2)
[2017-09-08 05:18] LABS: CHLORIDE 99 mEq/L (99-109); POTASSIUM 4.1 mEq/L (3.7-5.4); SODIUM 142 mEq/L (136-147)
[2017-09-08 05:24] LABS: CREATININE 0.6 mg/dL (0.6-1.3); GFR ESTIMATE (CALCULATED) > 59 mL/min/; GLUCOSE 273 mg/dL (70-99)
[2017-09-08 05:25] LABS: UREA NITROGEN (BUN) 17 mg/dL (9-23)
[2017-09-08 05:44] LABS: PLAT.SUFFICIENCY DECREASED; PLATELET COUNT 109 K/uL (156-360)
[2017-09-08 14:08] LABS: BASE EXCESS 19.9 mEq/L (-3 to +3); BICARBONATE 47.5 mEq/L (22-26); CARBOXY HGB 2.9 % (0-5); COMMENTS - BLOOD GASES A+C+; METHEMOGLOBIN 0 % (0-1.5); PCO2 75 mm Hg (35-45); PO2 97 mm Hg (80-100); SITE RR; pH 7.41 (7.35-7.45)
[2017-09-08 14:09] LABS: DEVICE NC; O2 FLOW 5.5 L/MIN
[2017-09-09 03:54] VITALS: BP 177/83
[2017-09-09 04:59] LABS: BASOPHIL (%) 0.1 % (0-1); EOSINOPHIL (%) 0 % (0-5); HEMATOCRIT 32.6 % (36.0-46.0); HEMOGLOBIN 10.4 G/DL (11.9-15.5); IMMATURE GRANULOCYTE (%) 0.6 % (0.0-0.7); LYMPHOCYTE COUNT 2.3 K/uL (1.0-2.8); MCH 29.2 PG (29.0-34.0); MCHC 31.9 G/DL (30.0-36.0); MCV 91.6 FL (83-99); MONOCYTE (%) 5.2 % (3-12); MONOCYTE COUNT 0.5 K/uL (0-0.8); NEUTROPHIL (%) 71.1 % (45-76); NEUTROPHIL COUNT 7.1 K/uL (1.8-6.4); PLATELET COUNT 132 K/uL (156-360); RBC DIS.WIDTH-CV 13.5 % (11.8-14.6); RBC DIS.WIDTH-SD 46.1 % (39-53); RED BLOOD COUNT 3.56 M/uL (3.80-5.20)
[2017-09-09 05:20] LABS: CHLORIDE 94 mEq/L (99-109); POTASSIUM 3.8 mEq/L (3.7-5.4); SODIUM 144 mEq/L (136-147)
[2017-09-09 05:22] LABS: GLUCOSE 248 mg/dL (70-99)
[2017-09-09 05:26] LABS: CREATININE 0.7 mg/dL (0.6-1.3); GFR ESTIMATE (CALCULATED) > 59 mL/min/
[2017-09-09 05:27] LABS: CARBON DIOXIDE (BICARBONATE) > 40.0 mEq/L (20-31); UREA NITROGEN (BUN) 13 mg/dL (9-23)
[2017-09-09 09:18] VITALS: BP 154/78
[2017-09-09 10:51] LABS: BASE EXCESS 26.6 mEq/L (-3 to +3); BICARBONATE 54.6 mEq/L (22-26); CARBOXY HGB 1.2 % (0-5); COMMENTS - BLOOD GASES A+C+; FI02 32 %; METHEMOGLOBIN 1.1 % (0-1.5); MODE NC; O2 FLOW 3 L/MIN; PCO2 75 mm Hg (35-45); PO2 102 mm Hg (80-100); SITE RA; TOTAL RESP RATE 18 resp/min; pH 7.47 (7.35-7.45)
[2017-09-09 11:35] VITALS: BP 161/71
[2017-09-09 15:33] VITALS: BP 149/77
[2017-09-09 20:30] VITALS: BP 130/100
[2017-09-10] VITALS (7 sets, daily range): BP systolic 119–149; BP diastolic 63–87
[2017-09-10 05:55] LABS: BASOPHIL (%) 0 % (0-1); EOSINOPHIL (%) 0 % (0-5); HEMATOCRIT 33.2 % (36.0-46.0); HEMOGLOBIN 10.6 G/DL (11.9-15.5); IMMATURE GRANULOCYTE (%) 0.5 % (0.0-0.7); LYMPHOCYTE (%) 23.7 % (15-42); LYMPHOCYTE COUNT 1.9 K/uL (1.0-2.8); MCH 28.9 PG (29.0-34.0); MCHC 31.9 G/DL (30.0-36.0); MCV 90.5 FL (83-99); MONOCYTE (%) 6.4 % (3-12); MONOCYTE COUNT 0.5 K/uL (0-0.8); NEUTROPHIL (%) 69.4 % (45-76); NEUTROPHIL COUNT 5.5 K/uL (1.8-6.4); PLATELET COUNT 157 K/uL (156-360); RBC DIS.WIDTH-CV 13.5 % (11.8-14.6); RBC DIS.WIDTH-SD 45.7 % (39-53); RED BLOOD COUNT 3.67 M/uL (3.80-5.20)
[2017-09-10 06:18] LABS: CHLORIDE 91 MEQ/L (99-109); CREATININE 0.6 MG/DL (0.6-1.3); GFR ESTIMATE (CALCULATED) > 59 mL/min/; GLUCOSE 224 mg/dL (70-99); POTASSIUM 3.9 MEQ/L (3.7-5.4); SODIUM 141 MEQ/L (136-147); UREA NITROGEN (BUN) 18 mg/dL (9-23)
[2017-09-10 06:19] LABS: CARBON DIOXIDE (BICARBONATE) > 40.0 MEQ/L (20-31)
[2017-09-11 03:45] VITALS: BP 136/76
[2017-09-11 06:30] LABS: BASOPHIL (%) 0 % (0-1); EOSINOPHIL (%) 0 % (0-5); HEMATOCRIT 34.7 % (36.0-46.0); HEMOGLOBIN 10.8 G/DL (11.9-15.5); IMMATURE GRANULOCYTE (%) 0.6 % (0.0-0.7); LYMPHOCYTE COUNT 2.6 K/uL (1.0-2.8); MCH 28.4 PG (29.0-34.0); MCHC 31.1 G/DL (30.0-36.0); MCV 91.3 FL (83-99); MONOCYTE (%) 6.5 % (3-12); MONOCYTE COUNT 0.6 K/uL (0-0.8); NEUTROPHIL (%) 62.9 % (45-76); NEUTROPHIL COUNT 5.4 K/uL (1.8-6.4); PLATELET COUNT 170 K/uL (156-360); RBC DIS.WIDTH-CV 13.5 % (11.8-14.6); RBC DIS.WIDTH-SD 45.5 % (39-53); WHITE BLOOD COUNT 8.6 K/uL (4.1-10.2)
[2017-09-11 06:53] LABS: CHLORIDE 91 MEQ/L (99-109); CREATININE 0.6 MG/DL (0.6-1.3); GFR ESTIMATE (CALCULATED) > 59 mL/min/; GLUCOSE 220 mg/dL (70-99); SODIUM 143 MEQ/L (136-147); UREA NITROGEN (BUN) 17 mg/dL (9-23)
[2017-09-11 06:54] LABS: CARBON DIOXIDE (BICARBONATE) > 40.0 MEQ/L (20-31)
[2017-09-11 07:11] VITALS: BP 158/78
[2017-09-11 11:12] VITALS: BP 137/65
[2017-09-11 15:09] VITALS: BP 114/57
[2017-09-11 19:59] VITALS: BP 113/59
[2017-09-12 00:39] VITALS: BP 140/71
[2017-09-12 04:31] VITALS: BP 157/71
[2017-09-12 07:52] VITALS: BP 134/71
[2017-09-12 11:29] VITALS: BP 147/67
[2017-09-12] MEDS ORDERED: CEFDINIR300 MG PO (12:38)
[2017-09-12] MEDS ORDERED: JANUVIA25 M1 PO (12:45)
[2017-09-12] MEDS ORDERED: MEDROL DOSEPAK4 MG PO (12:50)
[2017-09-12] MEDS ORDERED: FAMOTIDINE20 MG PO (12:52)
[2017-09-12] MEDS ORDERED: NOVOLOG 10100 UNITS/ SC (12:54)
== END 2017-09-12 16:08 | DRG 871 ==
LOC: EME 15:14 → 4EAST 19:45 → EDOF 19:45 → ENRESERV 19:54 → 4EAST 21:26 → ENRESERV 09-10 14:34 → 5SOUTH 09-10 17:26 → ENPENDDIS 09-12 14:08 → 5SOUTH 09-12 16:08
PROVIDERS: Emergency Medicine; Internal Medicine; Physician Assistant Medical; Student in an Organized Health Care Education/Training Program
DX: A41.9 Sepsis, unspecified organism (principal); J96.21 Acute and chronic respiratory failure with hypoxia; J96.22 Acute and chronic respiratory failure with hypercapnia; Z53.29 Procedure and treatment not carried out because of patient's decision for other reasons; J44.1 Chronic obstructive pulmonary disease with (acute) exacerbation; J44.0 Chronic obstructive pulmonary disease with (acute) lower respiratory infection; J20.9 Acute bronchitis, unspecified; E87.4 Mixed disorder of acid-base balance; D69.6 Thrombocytopenia, unspecified; E11.649 Type 2 diabetes mellitus with hypoglycemia without coma; E78.5 Hyperlipidemia, unspecified; E86.0 Dehydration; I10 Essential (primary) hypertension; F41.9 Anxiety disorder, unspecified; K21.9 Gastro-esophageal reflux disease without esophagitis; F31.9 Bipolar disorder, unspecified; R64 Cachexia; Z68.1 Body mass index [BMI] 19.9 or less, adult; Z79.82 Long term (current) use of aspirin; Z86.73 Personal history of transient ischemic attack (TIA), and cerebral infarction without residual deficits; Z91.19 Patient's noncompliance with other medical treatment and regimen; Z99.81 Dependence on supplemental oxygen; Z87.891 Personal history of nicotine dependence
CPT/HCPCS: 36600; 71045; 71275; 80048; 80053; 80198; 81003; 82248; 82803; 82948; 83605; 83690; 83930; 85025; 85027; 85610; 85730; 87040; 87070; 87205; 87493; 87502; 93005; 94640; 94640 76; 94760; 94799; 99202; 99281; 99285; J0295; J0692; J1644; J1815; J1956; J2270; J2543; J2920; J2930; J3370; J7050; J7120; J7512; J7644

== ENCOUNTER 2017-09-30 09:21 | Inpatient (IN) | payer OTHER ==
[~2017-09-30] VITALS: Ht 154.9 cm; Wt 43.0 kg
[2017-09-30] VITALS (11 sets, daily range): BP systolic 100–139; BP diastolic 55–75
[~2017-09-30 09:21] MED LIST changes: +EYE DROPS; +FAMOTIDINE20 MG PO; +JANUVIA25 M1 PO; +LUMIGAN 0.50 DROP/22 LEFT EYE; +MEDROL DOSEPAK4 MG PO; +NOVOLOG 10100 UNITS/ SC; +OXYCODONE-APAP1 EACH PO; +PROAIR HFA8.5 GM IH
[2017-09-30 09:42] LABS: BASE EXCESS 7.4 mEq/L (-3 to +3); BICARBONATE 37.7 mEq/L (22-26); CARBOXY HGB 1.5 % (0-5); METHEMOGLOBIN 0.7 % (0-1.5); PCO2 92 mm Hg (35-45); PO2 99 mm Hg (80-100); SITE RR; pH 7.22 (7.35-7.45)
[2017-09-30 09:43] LABS: COMMENTS - BLOOD GASES A+C+MD AWARE; O2 FLOW 50 L/MIN
[2017-09-30 09:44] LABS: DEVICE HHFNC; FI02 40 %; TOTAL RESP RATE 26 resp/min
[2017-09-30 09:51] LABS: HEMATOCRIT 35.8 % (36.0-46.0); HEMOGLOBIN 11.1 G/DL (11.9-15.5); MCH 28.5 PG (29.0-34.0); MCV 91.8 FL (83-99); RBC DIS.WIDTH-SD 46.8 % (39-53); WHITE BLOOD COUNT 10.5 K/uL (4.1-10.2)
[2017-09-30 09:59] LABS: CHLORIDE 99 mEq/L (99-109); POTASSIUM 4.5 mEq/L (3.7-5.4); SODIUM 140 mEq/L (136-147)
[2017-09-30 10:00] LABS: GLUCOSE 229 mg/dL (70-99); PTT 27.9 SEC (25-37)
[2017-09-30 10:04] LABS: CREATININE 0.8 mg/dL (0.6-1.3); GFR ESTIMATE (CALCULATED) > 59 mL/min/
[2017-09-30 10:05] LABS: UREA NITROGEN (BUN) 30 mg/dL (9-23)
[2017-09-30 10:11] LABS: TROP-I INTERPRETATION NEGATIVE; TROPONIN-I 0.01 ng/mL (0.0-0.30)
[2017-09-30 10:42] LABS: BASE EXCESS 6.1 mEq/L (-3 to +3); BICARBONATE 34.9 mEq/L (22-26); CARBOXY HGB 1.7 % (0-5)
[2017-09-30 10:43] LABS: COMMENTS - BLOOD GASES A+C+; PCO2 76 mm Hg (35-45); PO2 65 mm Hg (80-100); SITE RR; pH 7.27 (7.35-7.45)
[2017-09-30 10:44] LABS: DEVICE HHFNC; FI02 35 %; O2 FLOW 60 L/MIN; TOTAL RESP RATE 22 resp/min
[2017-09-30 11:41] LABS: BASOPHIL (%) 0.2 % (0-1); EOSINOPHIL (%) 0 % (0-5); IMMATURE GRANULOCYTE (%) 0.7 % (0.0-0.7); LYMPHOCYTE (%) 15.5 % (15-42); LYMPHOCYTE COUNT 1.6 K/uL (1.0-2.8); MONOCYTE (%) 2.8 % (3-12); MONOCYTE COUNT 0.3 K/uL (0-0.8); NEUTROPHIL (%) 80.8 % (45-76); NEUTROPHIL COUNT 8.5 K/uL (1.8-6.4); PLAT.SUFFICIENCY DECREASED; PLATELET COUNT 134 K/uL (156-360)
[2017-09-30] MEDS ORDERED: ASPERCREME1 EACH TP (11:52)
[2017-09-30] MEDS ORDERED: BESIVANCE5 ML RIGHT EYE (11:54)
[2017-09-30] MEDS ORDERED: ILEVRO1.7 ML RIGHT EYE (11:54)
[2017-09-30] MEDS ORDERED: DUREZOL 0.100 DROP/5 RIGHT EYE (11:54)
[2017-09-30] MEDS ORDERED: ZANTAC150 MG PO (11:56)
[2017-09-30] MEDS ORDERED: ATORVASTATIN CA10 MG PO (11:59)
[2017-09-30] MEDS ORDERED: ACETAMINOPHEN325 M1 PO (12:06)
[2017-09-30] MEDS ORDERED: MILK OF MAGN PO (12:07)
[2017-09-30] MEDS ORDERED: DULCOLAX10 MG PR (12:07)
[2017-09-30] MEDS ORDERED: FLEET ENEMA-AD118 ML PR (12:08)
[2017-09-30] MEDS ORDERED: TRAZODONE HCL50 MG PO (12:08)
[2017-09-30 12:15] LABS: BASE EXCESS 6.3 mEq/L (-3 to +3); BICARBONATE 35.5 mEq/L (22-26); CARBOXY HGB 1.7 % (0-5); METHEMOGLOBIN 0.8 % (0-1.5); PO2 56 mm Hg (80-100)
[2017-09-30 12:16] LABS: COMMENTS - BLOOD GASES C+; DEVICE HHFNC; FI02 35 %; O2 FLOW 60 L/MIN; PCO2 81 mm Hg (35-45); SITE RB; TOTAL RESP RATE 20 resp/min; pH 7.25 (7.35-7.45)
[2017-09-30 15:07] LABS: APPEARANCE SL.HAZY ((CLEAR)); BILIRUBIN NEGATIVE; BLOOD NEGATIVE; COLOR YELLOW ((YELLOW)); GLUCOSE (STRIP) 50; KETONES NEGATIVE; LEUKOCYTES NEGATIVE; NITRITE NEGATIVE; PROTEIN (STRIP) 100; SPECIFIC GRAVITY 1.021 (1.000-1.030); UROBILINOGEN 0.2 MG/DL (0.2-1.0)
[2017-09-30 15:18] LABS: BASE EXCESS 8.9 mEq/L (-3 to +3); BICARBONATE 34.9 mEq/L (22-26); CARBOXY HGB 1.1 % (0-5); METHEMOGLOBIN 1.1 % (0-1.5)
[2017-09-30 15:19] LABS: COMMENTS - BLOOD GASES A+C+; DEVICE 840 PB; FI02 50 %; MECHANICAL RATE 20 resp/min; MODE AC; PCO2 55 mm Hg (35-45); PEEP 5 CM/H20; PO2 214 mm Hg (80-100); SITE RR; TIDAL VOLUME 350 ML; TOTAL RESP RATE 20 resp/min; pH 7.41 (7.35-7.45)
[2017-09-30 15:36] LABS: BACTERIA NONE SEEN /HPF; EPITHELIAL CELLS RARE /HPF; HYALINE CASTS 30-40 /LPF; MUCUS TRACE /LPF; RED BLOOD CELLS 0-5 /HPF (0-5); UCUL ADDED? NO; WHITE BLOOD CELLS 0-5 /HPF (0-5)
[2017-10-01] VITALS (24 sets, daily range): BP systolic 108–160; BP diastolic 58–99
[2017-10-01 05:18] LABS: BASE EXCESS 7.6 mEq/L (-3 to +3); BICARBONATE 33.1 mEq/L (22-26); CARBOXY HGB 0.8 % (0-5); COMMENTS - BLOOD GASES C+A+; DEVICE VENT; FI02 30 %; MECHANICAL RATE 20 resp/min; METHEMOGLOBIN 1.4 % (0-1.5); MODE AC; PCO2 51 mm Hg (35-45); PEEP 5 CM/H20; PO2 83 mm Hg (80-100); SITE RR; TIDAL VOLUME 350 ML; TOTAL RESP RATE 20 resp/min; pH 7.42 (7.35-7.45)
[2017-10-01 05:52] LABS: HEMATOCRIT 29.2 % (36.0-46.0); HEMOGLOBIN 9.4 G/DL (11.9-15.5); MCH 29.3 PG (29.0-34.0); MCHC 32.2 G/DL (30.0-36.0); PLATELET COUNT 134 K/uL (156-360); RBC DIS.WIDTH-CV 13.9 % (11.8-14.6); RBC DIS.WIDTH-SD 46.5 % (39-53); RED BLOOD COUNT 3.21 M/uL (3.80-5.20); WHITE BLOOD COUNT 3.7 K/uL (4.1-10.2)
[2017-10-01 06:10] LABS: CHLORIDE 101 MEQ/L (99-109); CREATININE 0.7 MG/DL (0.6-1.3); GFR ESTIMATE (CALCULATED) > 59 mL/min/; GLUCOSE 203 mg/dL (70-99); MAGNESIUM 1.8 mg/dl (1.3-2.7); PHOSPHORUS 3.9 mg/dL (2.5-4.9); POTASSIUM 4.6 MEQ/L (3.7-5.4); SODIUM 141 MEQ/L (136-147); UREA NITROGEN (BUN) 29 mg/dL (9-23)
[2017-10-01 08:01] LABS: BASOPHIL (%) 0 % (0-1); EOSINOPHIL (%) 0 % (0-5); IMMATURE GRANULOCYTE (%) 0.3 % (0.0-0.7); LYMPHOCYTE (%) 25.6 % (15-42); LYMPHOCYTE COUNT 0.9 K/uL (1.0-2.8); MONOCYTE (%) 1.9 % (3-12); MONOCYTE COUNT 0.1 K/uL (0-0.8); NEUTROPHIL (%) 72.2 % (45-76); NEUTROPHIL COUNT 2.7 K/uL (1.8-6.4); PLAT.SUFFICIENCY DECREASED
[2017-10-02] VITALS (24 sets, daily range): BP systolic 126–176; BP diastolic 74–94
[2017-10-02 05:10] LABS: BASE EXCESS 10.7 mEq/L (-3 to +3); BICARBONATE 36.5 mEq/L (22-26); CARBOXY HGB 1.2 % (0-5); COMMENTS - BLOOD GASES C+A+; DEVICE VENT; FI02 30 %; MECHANICAL RATE 10 resp/min; METHEMOGLOBIN 1.1 % (0-1.5); MODE SIMV; PCO2 55 mm Hg (35-45); PEEP 10 CM/H20; PO2 72 mm Hg (80-100); PRES. SUPPORT 20 CM/H2O; SITE RR; TIDAL VOLUME 400 ML; TOTAL RESP RATE 12 resp/min; pH 7.43 (7.35-7.45)
[2017-10-02 05:12] LABS: CHLORIDE 103 mEq/L (99-109); POTASSIUM 4.1 mEq/L (3.7-5.4); SODIUM 143 mEq/L (136-147)
[2017-10-02 05:13] LABS: GLUCOSE 120 mg/dL (70-99)
[2017-10-02 05:17] LABS: CREATININE 0.6 mg/dL (0.6-1.3); GFR ESTIMATE (CALCULATED) > 59 mL/min/
[2017-10-02 05:18] LABS: UREA NITROGEN (BUN) 23 mg/dL (9-23)
[2017-10-03] VITALS (25 sets, daily range): BP systolic 107–189; BP diastolic 64–107
[2017-10-03 04:59] LABS: BASOPHIL (%) 0 % (0-1); EOSINOPHIL (%) 0 % (0-5); HEMATOCRIT 30.1 % (36.0-46.0); HEMOGLOBIN 9.8 G/DL (11.9-15.5); IMMATURE GRANULOCYTE (%) 1.4 % (0.0-0.7); LYMPHOCYTE (%) 16.7 % (15-42); LYMPHOCYTE COUNT 1.4 K/uL (1.0-2.8); MCH 28.7 PG (29.0-34.0); MCHC 32.6 G/DL (30.0-36.0); MCV 88.3 FL (83-99); MONOCYTE (%) 3.4 % (3-12); MONOCYTE COUNT 0.3 K/uL (0-0.8); NEUTROPHIL (%) 78.5 % (45-76); NEUTROPHIL COUNT 6.8 K/uL (1.8-6.4); RBC DIS.WIDTH-CV 14.5 % (11.8-14.6); RBC DIS.WIDTH-SD 46.3 % (39-53); RED BLOOD COUNT 3.41 M/uL (3.80-5.20); WHITE BLOOD COUNT 8.6 K/uL (4.1-10.2)
[2017-10-03 05:06] LABS: PLATELET COUNT 192 K/uL (156-360)
[2017-10-03 05:17] LABS: CHLORIDE 102 mEq/L (99-109); POTASSIUM 4.1 mEq/L (3.7-5.4); SODIUM 144 mEq/L (136-147)
[2017-10-03 05:22] LABS: GLUCOSE 203 mg/dL (70-99)
[2017-10-03 05:23] LABS: CREATININE 0.6 mg/dL (0.6-1.3); GFR ESTIMATE (CALCULATED) > 59 mL/min/
[2017-10-03 05:24] LABS: UREA NITROGEN (BUN) 18 mg/dL (9-23)
[2017-10-04] VITALS (24 sets, daily range): BP systolic 105–158; BP diastolic 67–92
[2017-10-04 06:26] LABS: PHOSPHORUS 3.4 mg/dL (2.5-4.9)
[2017-10-05] VITALS (16 sets, daily range): BP systolic 66–149; BP diastolic 32–87
== END 2017-10-05 14:59 | DRG 208 ==
LOC: EME 09:21 → 4WEST 12:38 → EDOF 12:38 → ENRESERV 12:39 → 4WEST 14:07
PROVIDERS: Emergency Medicine; Internal Medicine Critical Care Medicine; Specialist
PROC: 5A1945Z Respiratory Ventilation, 24-96 Consecutive Hours (ICD-10-PCS; principal; 2017-09-30)
PROC: 0BH17EZ Insertion of Endotracheal Airway into Trachea, Via Natural or Artificial Opening (ICD-10-PCS; principal; 2017-09-30)
PROC: 0BH17EZ Insertion of Endotracheal Airway into Trachea, Via Natural or Artificial Opening (ICD-10-PCS; 2017-10-03)
PROC: 5A1945Z Respiratory Ventilation, 24-96 Consecutive Hours (ICD-10-PCS; 2017-10-03)
DX: J96.21 Acute and chronic respiratory failure with hypoxia (principal); J44.0 Chronic obstructive pulmonary disease with (acute) lower respiratory infection; J20.9 Acute bronchitis, unspecified; J44.1 Chronic obstructive pulmonary disease with (acute) exacerbation; E87.3 Alkalosis; Z66 Do not resuscitate; Z51.5 Encounter for palliative care; R64 Cachexia; E11.9 Type 2 diabetes mellitus without complications; E78.5 Hyperlipidemia, unspecified; I10 Essential (primary) hypertension; I27.20 Pulmonary hypertension, unspecified; K21.9 Gastro-esophageal reflux disease without esophagitis; D69.6 Thrombocytopenia, unspecified; F41.9 Anxiety disorder, unspecified; Z86.73 Personal history of transient ischemic attack (TIA), and cerebral infarction without residual deficits; Z87.891 Personal history of nicotine dependence; Z99.81 Dependence on supplemental oxygen; Z68.1 Body mass index [BMI] 19.9 or less, adult; Z79.82 Long term (current) use of aspirin; Z79.891 Long term (current) use of opiate analgesic
CPT/HCPCS: 31500; 36600; 71045; 80048; 81003; 82803; 82948; 83735; 83880; 84100; 84484; 85025; 85610; 85730; 87040; 87070; 87081; 87106; 87205; 87449; 87502; 87641; 93005; 93306; 94002; 94003; 94640; 94640 76; 94644; 94645; 99202; 99281; 99285; J0330; J0456; J0696; J1100; J1644; J1815; J1885; J2250; J2270; J2543; J2704; J2920; J2930; J3010; J3370; J3475; J7050; J7120; J7644